=== PATIENT | female | born 1985 | race Caucasian/White ===

== ENCOUNTER → 2017-11-16 | Outpatient (CLI) | payer BC | LOC: BMCIMAGING 11:43 | PROVIDERS: ATTEND Internal Medicine | DX: R07.81 Pleurodynia (principal); R05 Cough ==

== ENCOUNTER → 2018-03-07 | Outpatient (CLI) | payer BC | LOC: FIMAGING 15:40 | PROVIDERS: ATTEND Internal Medicine | DX: K76.9 Liver disease, unspecified (principal) ==

== ENCOUNTER → 2018-03-08 | Outpatient (CLI) | payer BC | LOC: FIMAGING 07:54 | PROVIDERS: ATTEND Radiology Diagnostic Radiology | DX: R16.0 Hepatomegaly, not elsewhere classified (principal); K76.9 Liver disease, unspecified ==

== ENCOUNTER 2018-03-11 09:07 | Outpatient (CLI) | payer BC ==
[2018-03-11] MEDS ORDERED: NALOXONE HCL 0.4 MG/ML INJ IVP PRN (09:18)
[2018-03-11] MEDS ORDERED: MEPERIDINE 25 MG/ML SYR IVP PRN (09:18)
[2018-03-11] MEDS ORDERED: FLUMAZENIL 0.5 MG/5 ML MDV IVP PRN (09:18)
[2018-03-11] MEDS ORDERED: MIDAZOLAM 2 MG/2 ML VIAL IVP PRN (09:18)
[2018-03-11] MEDS ORDERED: fentaNYL 100 MCG/2 ML INJ IVP PRN (09:18)
[2018-03-11] MEDS ORDERED: FLUMAZENIL 0.5 MG/5 ML MDV IVP ONE (09:20)
[2018-03-11] MEDS ORDERED: NALOXONE HCL 0.4 MG/ML INJ ONE (09:20)
[2018-03-11] MEDS ORDERED: fentaNYL 100 MCG/2 ML INJ ONE (09:21)
[2018-03-11] MEDS ORDERED: MIDAZOLAM 2 MG/2 ML VIAL ONE (09:21)
[2018-03-11] MEDS ORDERED: NS 1,000 ML IV SCH (09:30)
[2018-03-11] MEDS ORDERED: LIDOCAINE 1% 300 MG/30 ML SDV ONE (09:45)
[2018-03-11 10:03] LABS: INR 0.99 (0.83-1.16); PROTIME(PATIENT) 13.3 SEC (12.0-15.0)
--- NOTE | 2018-03-11 10:49 | PDRADPRE ---
Radiology History & Physical Indication for procedure: other (liver mass) Home medications: 5-Htp 03/08/18 [Last Taken 03/08/18] Alprazolam 1 mg PO 03/08/18 [Last Taken 02/25/18] Thiamine HCl 100 mg PO DAILY 03/08/18 [Last Taken 03/10/18] Tyrosine 03/08/18 [Last Taken 03/09/18] Allergies/Adverse Reactions: No Known Allergies Allergy (Unverified 05/21/09 19:00) Mental status: A&Ox3 Heart exam: regular rate and rhythm Mallampati Score: Class 2
--- NOTE | 2018-03-11 10:50 | PDPROPOC ---
Sedation Plan of Care ASA Classification: ASA 2 Mallampati Score: Class 2 Mallampati Reference Image:
--- NOTE | 2018-03-11 11:49 | PDRADPN ---
Radiology Procedure Note Date of Procedure: 03/11/18 Radiologist: Glenn Abebe Anesthesia: IV Sedation Pre-op Diagnosis: liver mass Post-op Diagnosis: same Procedure: right hepatic lobe mass biopsy Inf/Abcess present in the surg proc area at time of surgery?: No
[2018-03-11] MEDS ORDERED: ONDANSETRON 4 MG/2 ML VIAL IVP PRN (12:03)
[2018-03-11] MEDS ORDERED: oxyCODONE IR 5 MG TAB PO PRN (12:03)
[2018-03-11 14:31] VITALS: BP 103/65
== END 2018-03-11 15:22 | disposition home or self-care (01) ==
LOC: FIMAGING 09:07
PROVIDERS: ATTEND Internal Medicine
PROC: 0FB03ZX Excision of Liver, Percutaneous Approach, Diagnostic (ICD-10-PCS; principal; 2018-03-11 11:53)
DX: D13.4 Benign neoplasm of liver (principal)
CPT/HCPCS: J2250; J2310; J3010

== ENCOUNTER 2018-04-07 20:12 | Emergency (ER) | payer BC ==
[2018-04-07] MEDS ORDERED: NS 1,000 ML IV ONE (20:54)
[2018-04-07] MEDS ORDERED: LORazepam 2 MG/ML INJ IVP ONE ×2 (20:54→21:04)
--- NOTE | 2018-04-07 20:56 | EDPHY ---
H & P Stated Complaint: etoh hx wants detox Time Seen by Provider: 04/07/18 20:33 HPI/ROS: CHIEF COMPLAINT: Alcohol withdrawal HISTORY OF PRESENT ILLNESS: 33-year-old female, self-described alcoholic, in the ER via private vehicle with father requesting assistance from alcohol withdrawal. Today is Sunday evening. She notes she has been drinking regularly for the past several weeks, last drink of alcohol was this morning. Denies suicidal or homicidal ideation. Denies seizure. She is [facility] and then looking for a long-term option tomorrow (Sunday). No hallucination. PRIMARY CARE PROVIDER: REVIEW OF SYSTEMS: A ten point review of systems was performed and is negative with the exception of the items mentioned in the HPI PAST MEDICAL & SURGICAL HISTORY: Self-described history of alcoholism SOCIAL HISTORY: Last drink of alcohol this morning PHYSICAL EXAM (Prior to examination, patient consented to physical exam, hands were washed and my usual and customary physical exam procedures followed) 1) GENERAL: Well-developed, well-nourished, alert and oriented. Appears to be in no acute distress. Tremulous 2) HEAD: Normocephalic, atraumatic 3) HEENT: Pupils equal, round, reactive to light bilaterally. Sclera anicteric. Nasopharynx, oropharynx, clear, no lesions. Dry mucous membranes. 4) NECK: Full range of motion, no meningeal signs. 5) LUNGS: Clear auscultation bilaterally, no wheezes, no rhonchi, no retractions. 6) HEART: Regular rate and rhythm, no murmur, no heave, no gallop. 7) ABDOMEN: No guarding, no rebound, no focal tenderness, negative McBurney's, negative Galindo's, negative Rovsing's, negative peritoneal sign, 8) MUSCULOSKELETAL: Moving all extremities, no focal areas of tenderness, no obvious trauma. No peripheral edema or discoloration. 9) BACK: No CVA tenderness, no midline vertebral tenderness, no fluctuance, no step-off, no obvious trauma, no visual or palpable abnormality. 10) SKIN: No rash, no petechiae. 11) Psychiatric: Patient is oriented X 3, there is no agitation. DIFFERENTIAL DIAGNOSIS: In no particular order including but not limited to acute alcohol withdrawal, alcohol withdrawal seizure, alcoholic hallucinosis, delirium tremens - Personal History LMP (Females 10-55): 8-14 Days Ago Current Tetanus/Diphtheria Vaccine: Yes Current Tetanus Diphtheria and Acellular Pertussis (TDAP): Yes - Medical/Surgical History Hx Asthma: No Hx Chronic Respiratory Disease: No Hx Diabetes: No Hx Cardiac Disease: No Hx Renal Disease: No Hx Cirrhosis: No Hx Alcoholism: No Hx HIV/AIDS: No Hx Splenectomy or Spleen Trauma: No Other PMH: liver tumors. alcoholic - Social History Smoking Status: Never smoked Constitutional: Initial Vital Signs Temperature (C) 36.5 C 04/07/18 20:25 Heart Rate 124 H 04/07/18 20:25 Respiratory Rate 18 04/07/18 20:25 Blood Pressure 139/95 H 04/07/18 20:25 O2 Sat (%) 94 04/07/18 20:25 O2 Delivery Mode Room Air Allergies/Adverse Reactions: No Known Allergies Allergy (Verified 03/22/18 07:41) Home Medications: Medication Instructions Recorded 5-Htp 03/08/18 Alprazolam 1 mg PO 03/08/18 Thiamine HCl 100 mg PO DAILY 03/08/18 Tyrosine 03/08/18 Medical Decision Making ED Course/Re-evaluation: 8:56 p.m. : Patient is agreeable with receiving IV hydration and benzodiazepine the ER before going to [facility] this evening where her father will take her with Librium. She does not meet criteria for an M1 hold. Doubt delirium tremens or alcoholic hallucinosis at this time. I saw this patient independently based on established practice protocols. Care of patient under supervision of secondary supervising physician Dr Blas Morrell . 9:50 p.m. re-evaluation after 1 L IV fluid and 1 mg of IV Ativan, feeling improvement, heart rate in the low 90s. Her father will take her to the [facility] with Librium prepack. She will be calling [facility] tomorrow (Sunday) to see about getting into a longer term rehab program. She denies suicidal or homicidal ideation. She does not meet criteria for an M1 hold at this time. - Data Points Medications Given: Discontinued Medications Sodium Chloride (Ns) 1,000 mls @ 0 mls/hr IV ONCE ONE PRN Reason: Wide Open Stop: 04/07/18 20:55 Last Admin: 04/07/18 20:58 Dose: 1,000 mls Lorazepam (Ativan Injection) 2 mg IVP EDNOW ONE Stop: 04/07/18 20:55 Last Admin: 04/07/18 21:19 Dose: Not Given Lorazepam (Ativan Injection) 1 mg IVP ONCE ONE Stop: 04/07/18 21:05 Last Admin: 04/07/18 21:15 Dose: 1 mg Departure - Departure Disposition: Home, Routine, Self-Care Clinical Impression: Alcohol withdrawal Qualifiers: Complication of substance-induced condition: uncomplicated Qualified Code(s): F10.230 - Alcohol dependence with withdrawal, uncomplicated Condition: Good Instructions: Chlordiazepoxide (By mouth), Alcohol Withdrawal (ED) Referrals: [facility] [Outside] - As per Instructions
[2018-04-07] MEDS ORDERED: CHLORDIAZEPOXIDE 25MG PREPK#6 BTL TAKEHOME ONE (21:34)
--- NOTE | 2018-04-07 21:41 | ASMTLCPROG ---
Notes Note: Notes: Pt requested resources for detox and wanted options for inpt. Pt was given resources for [facility], [facility] and [facility]. Pt spoke with [facility] to set up an intake appt for tomorrow. Date Signed: 04/07/2018 09:41 PM Electronically Signed By:Nadeen Wang
[2018-04-07 22:00] VITALS: BP 133/101
== END 2018-04-07 22:00 | disposition home or self-care (01) ==
DX: F10.230 Alcohol dependence with withdrawal, uncomplicated (principal)
CPT/HCPCS: 96374; J2060